=== PATIENT | female | born 1975 | race Caucasian/White ===

== ENCOUNTER 2024-07-24 04:47 | Day surgery (SDC) | payer OTHER ==
[2024-07-21 15:20] VITALS: BMI 22.2
[2024-07-24 09:34] LABS: BASO % 0.1 % (0-2.0); EOS % 2.1 % (0-4.5); HEMATOCRIT 38.7 % (32.4-45.2); LYMPH % 29.3 % (8-40); MCH 28.9 pg (25.7-33.7); MCHC 33.5 g/dl (32.0-36.0); MEAN CELL VOLUME 86.3 fl (80-96); NEUT % 59.5 % (42.8-82.8); PLATELET COUNT 241 10^3/uL (134-434); RBC 4.49 M/mm3 (3.60-5.2); RDW 14.3 % (11.6-15.6); WHITE BLOOD COUNT 6.3 K/mm3 (4.0-10.0)
[2024-07-24 09:41] LABS: INR 1.04 (0.83-1.09); PROTHROMBIN TIME (PATIENT) 11.7 SEC (9.7-13.0)
[2024-07-24 09:44] LABS: ACTIVATED PTT 29.2 SECONDS (25.2-36.5)
[2024-07-24 09:56] LABS: POTASSIUM 3.8 mmol/L (3.5-5.1)
[2024-07-24 09:58] LABS: ALBUMIN 3.8 g/dl (3.4-5.0); CALCIUM 9.2 mg/dL (8.5-10.1)
[2024-07-24 09:59] LABS: BLOOD UREA NITROGEN 17.6 mg/dL (7-18)
[2024-07-24 10:02] LABS: CREATININE 0.9 mg/dL (0.55-1.3)
[2024-07-24 10:03] LABS: TOT PROT 6.5 g/dl (6.4-8.2)
[2024-07-24] MEDS ORDERED: MIDAZOLAM HCL 2 MG/2 ML SINGLE DOSE VIAL ONE (11:59)
[2024-07-24] MEDS ORDERED: ONDANSETRON 4 MG/2 ML VIAL ONE (12:00)
[2024-07-24] MEDS ORDERED: DEXAMETHASONE SOD PHOSPHATE 4 MG/1 ML VIAL ONE (12:00)
[2024-07-24] MEDS ORDERED: ceFAZolin SODIUM 1 GM VIAL ONE (12:00)
[2024-07-24] MEDS ORDERED: KETOROLAC TROMETHAMINE 30 MG/1 ML VIAL ONE (12:00)
[2024-07-24] MEDS: ceFAZolin SODIUM 1 GM VIAL IVPB ONE ×2 (12:29)
[2024-07-24] MEDS: SILVER NITRATE 75% APPLIC STCK 1 PKT EACH TP ONE (12:55)
[2024-07-24 15:02] VITALS: BP 113/71; PULSE 69; RESP 16; TEMP 96.9
== END 2024-07-24 15:10 | disposition home or self-care (01) ==
LOC: JASU-SURG 04:47
PROVIDERS: ATTEND Obstetrics & Gynecology
PROC: 0UDB8ZX Extraction of Endometrium, Via Natural or Artificial Opening Endoscopic, Diagnostic (ICD-10-PCS; 2024-07-24)
PROC: 0UB98ZZ Excision of Uterus, Via Natural or Artificial Opening Endoscopic (ICD-10-PCS; principal; 2024-07-24 11:00)
DX: N84.0 Polyp of corpus uteri (principal); N92.4 Excessive bleeding in the premenopausal period; N85.8 Other specified noninflammatory disorders of uterus
CPT/HCPCS: 36415; 80053; 81025; 84702; 85025; 85610; 85730; 86850; 86900; 86901; 88305-TC; 88341-TC; 88342-TC; 94760

== ENCOUNTER 2024-10-09 05:21 | Day surgery (SDC) | payer OTHER ==
[2024-10-09] MEDS ORDERED: MIDAZOLAM HCL 2 MG/2 ML SINGLE DOSE VIAL ONE (08:54)
[2024-10-09] MEDS ORDERED: SEVOFLURANE 250 ML BTL ONE (08:56)
[2024-10-09] MEDS ORDERED: DEXAMETHASONE SOD PHOSPHATE 4 MG/1 ML VIAL ONE (08:59)
[2024-10-09] MEDS ORDERED: PROPOFOL 20 ML ONE (08:59)
[2024-10-09] MEDS ORDERED: KETOROLAC TROMETHAMINE 30 MG/1 ML VIAL ONE (08:59)
[2024-10-09] MEDS ORDERED: LIDOCAINE HCL/PF 2% SDV 5ML VIAL ONE (08:59)
[2024-10-09] MEDS ORDERED: ONDANSETRON 4 MG/2 ML VIAL ONE (08:59)
[2024-10-09] MEDS ORDERED: ONDANSETRON 4 MG/2 ML VIAL IVPUSH PRN (09:07)
[2024-10-09] MEDS ORDERED: oxyCODONE HCL 5 MG TABLET PO PRN (09:07)
[2024-10-09] MEDS ORDERED: SODIUM CHLORIDE 1,000 ML IV SCH (09:15)
[2024-10-09] MEDS ORDERED: LIDOCAINE 1%/EPI 1:100000 (20 ML MULTI DOSE VIAL) ONE (09:32)
[2024-10-09] MEDS: LIDOCAINE 1%/EPI 1:100000 (50 ML MULTI DOSE VIAL) NR ONE (09:42)
[2024-10-09 11:15] VITALS: BP 100/59; PULSE 59; RESP 14; TEMP 97.5
== END 2024-10-09 12:03 | disposition home or self-care (01) ==
LOC: JASU-SURG 05:21
PROVIDERS: ATTEND Obstetrics & Gynecology
PROC: 0UBC7ZX Excision of Cervix, Via Natural or Artificial Opening, Diagnostic (ICD-10-PCS; principal; 2024-10-09 09:00)
DX: N87.1 Moderate cervical dysplasia (principal)
CPT/HCPCS: 81025; 88305-TC; 88307-TC; 88341-TC; 88342-TC; 94760